=== PATIENT | female | born 1995 | race Caucasian/White ===

== ENCOUNTER 2016-11-19 16:55 | Emergency (ER) | payer OTHER ==
[~2016-11-19 16:55] MED LIST: HYDR-210 PO
[2016-11-19 17:48] LABS: BASO % 1 % (0-3); EOS # 0.2 x10^3/uL (0.0-0.7); EOS % 3 % (0-3); HEMATOCRIT 38.5 % (36.0-47.0); HEMOGLOBIN 13.2 g/dL (12.0-15.5); LYMPH # 2.2 x10^3/uL (1.0-4.8); LYMPH % 34 % (24-48); MEAN CORPUSCULAR HEMOGLOBIN 33 pg (25-35); MEAN CORPUSCULAR HGB CONC 34 g/dL (31-37); MEAN CORPUSCULAR VOLUME 96 fL (79-100); MONO # 0.4 x10^3/uL (0.0-1.1); MONO % 6 % (0-9); NEUT # 3.6 x10^3uL (1.8-7.7); NEUT % 56 % (31-73); PLATELET COUNT 249 x10^3/uL (140-400); RED BLOOD COUNT 4.02 x10^6/uL (3.50-5.40); RED CELL DISTRIBUTION WIDTH 11.9 % (11.5-14.5); WHITE BLOOD COUNT 6.4 x10^3/uL (4.0-11.0)
[2016-11-19 18:00] LABS: PREG TEST PT QUAL NEGATIVE (NEG)
[2016-11-19 18:01] LABS: ALBUMIN 3.7 g/dL (3.4-5.0); ALBUMIN/GLOBULIN RATIO 1.2 (1.0-1.7); CALCIUM 8.8 mg/dL (8.5-10.1); CREATININE 0.9 mg/dL (0.6-1.0); GFR 77.6; TOTAL BILIRUBIN 0.4 mg/dL (0.2-1.0); TOTAL PROTEIN 6.9 g/dL (6.4-8.2)
--- NOTE | 2016-11-19 18:23 | ED.ADGEN ---
Past History Past Medical History: No Pertinent History, Other (SHELLIE JOHNSON DO) Past Surgical History: No Surgical History (SHELLIE JOHNSON DO) Smoking: Non-smoker Alcohol Use: Occasionally Drug Use: Methadone (SHELLIE JOHNSON DO) Adult General Chief Complaint Chief Complaint Persecutory delusions or dreams (SHELLIE JOHNSON DO) HPI HPI Patient is a 21-year-old female chronic psychosis who presents with threatening and persecutory delusions. Patient describes delusions or dreams and states that they cause her to want to hurt or cut herself. Patient reports cutting her left thigh yesterday. On exam, patient does have feeling superficial abrasions consistent with age. Patient states she has daily hallucinations. She was evaluated at the [facility] prior to ED arrival and referred to the ER for medical screening evaluation and telemedicine psychiatric intake evaluation for possible inpatient placement. Patient denies SI or HI. She states she takes Depakote is compliant with her treatment. She denies any acute medical complaints. Last menstrual period was 2 days ago. (SHELLIE JOHNSON DO) Review of Systems Review of Systems ROS as per HPI. (SHELLIE JOHNSON DO) Allergies Allergies Allergies Coded Allergies Type Severity Reaction Last Updated Verified No Known Drug Allergies 03/14/13 No (COERY SAMPSON MD) Physical Exam Physical Exam Constitutional: Well developed, well nourished, no acute distress, non-toxic appearance. [] HENT: Normocephalic, atraumatic, bilateral external ears normal, oropharynx moist, no oral exudates, nose normal. [] Eyes: PERRLA, EOMI, conjunctiva normal, no discharge. [] Neck: Normal range of motion, no tenderness, supple, no stridor. [] Cardiovascular:Heart rate regular rhythm, no murmur [] Lungs & Thorax: Bilateral breath sounds clear to auscultation [] Abdomen: Bowel sounds normal, soft, no tenderness, no masses, no pulsatile masses. [] Skin: Warm, dry, no erythema, no rash. [] Back: No tenderness, no CVA tenderness. [] Extremities: No tenderness, no cyanosis, no clubbing, ROM intact, no edema. [] Neurologic: Alert and oriented X 2, normal motor function, normal sensory function, no focal deficits noted. [] Psychologic: Affect, flat. (SHELLIE JOHNSON DO) Current Patient Data Vital Signs Vital Signs Date Time Temp Pulse Resp B/P (MAP) Pulse Ox O2 Delivery O2 Flow Rate FiO2 11/19/16 17:35 98.6 81 16 98 Room Air (COREY SAMPSON MD) Lab Results Laboratory Tests Test 11/19/16 17:20 11/19/16 17:25 White Blood Count 6.4 x10^3/uL (4.0-11.0) Red Blood Count 4.02 x10^6/uL (3.50-5.40) Hemoglobin 13.2 g/dL (12.0-15.5) Hematocrit 38.5 % (36.0-47.0) Mean Corpuscular Volume 96 fL (79-100) Mean Corpuscular Hemoglobin 33 pg (25-35) Mean Corpuscular Hemoglobin Concent 34 g/dL (31-37) Red Cell Distribution Width 11.9 % (11.5-14.5) Platelet Count 249 x10^3/uL (140-400) Neutrophils (%) (Auto) 56 % (31-73) Lymphocytes (%) (Auto) 34 % (24-48) Monocytes (%) (Auto) 6 % (0-9) Eosinophils (%) (Auto) 3 % (0-3) Basophils (%) (Auto) 1 % (0-3) Neutrophils # (Auto) 3.6 x10^3uL (1.8-7.7) Lymphocytes # (Auto) 2.2 x10^3/uL (1.0-4.8) Monocytes # (Auto) 0.4 x10^3/uL (0.0-1.1) Eosinophils # (Auto) 0.2 x10^3/uL (0.0-0.7) Basophils # (Auto) 0.0 x10^3/uL (0.0-0.2) Sodium Level 137 mmol/L (136-145) Potassium Level 4.0 mmol/L (3.5-5.1) Chloride Level 103 mmol/L (98-107) Carbon Dioxide Level 28 mmol/L (21-32) Anion Gap 6 (6-14) Blood Urea Nitrogen 11 mg/dL (7-20) Creatinine 0.9 mg/dL (0.6-1.0) Estimated GFR (Cockcroft-Gault) 77.6 BUN/Creatinine Ratio 12 (6-20) Glucose Level 83 mg/dL (70-99) Calcium Level 8.8 mg/dL (8.5-10.1) Total Bilirubin 0.4 mg/dL (0.2-1.0) Aspartate Amino Transferase (AST) 13 U/L (15-37) L Alanine Aminotransferase (ALT) 17 U/L (14-59) Alkaline Phosphatase 47 U/L (46-116) Total Protein 6.9 g/dL (6.4-8.2) Albumin 3.7 g/dL (3.4-5.0) Albumin/Globulin Ratio 1.2 (1.0-1.7) Serum Test, Qualitative Negative (NEG) Urine Opiates Screen Neg (NEG) Urine Methadone Screen Neg (NEG) Urine Barbiturates Neg (NEG) Urine Phencyclidine Screen Neg (NEG) Urine Amphetamine/Methamphetamine Neg (NEG) Urine Benzodiazepines Screen Neg (NEG) Urine Cocaine Screen Neg (NEG) Urine Cannabinoids Screen Neg (NEG) Ethyl Alcohol Level < 10 mg/dL (0-10) Urine Ethyl Alcohol Neg (NEG) Valproic Acid Level 56 mcg/mL (50-100) Valproic Acid Last Dose Date 11/19/16 Valproic Acid Last Dose Time 0800 (COREY SAMPSON MD) EKG EKG [] (SHELLIE JOHNSON DO) Radiology/Procedures Radiology/Procedures [] (SHELLIE JOHNSON DO) Course & Med Decision Making Course & Med Decision Making Pertinent Labs and Imaging studies reviewed. (See chart for details) [Work up in progress. Care endorsed to upcoming ERP at 18:00 pending telepsych evaluation. ] (SHELLIE JOHNSON DO) Course & Med Decision Making Assumed care at shift change at 1800 p.m. Patient resting comfortably. Waiting for lab. Laboratory data completed at 1840 5 PM. Valproic acid level normal. Waiting For psych evaluation. At 1930 PM: Psych evaluation complete. Recommend inpatient stay. Patient is agreeable to go voluntarily to [place]; awaiting bed confirmation. 2144PM: Dr Bowers at [facility] accepts patient. PATIENT AGREES TO VOLUNTARY TRANSPORT. Transport arranged by EMS. Mother at bedside. (COREY SAMPSON MD) Final Impression Final Impression [1. ] Problems: (SHELLIE JOHNSON DO) Dragon Disclaimer Dragon Disclaimer This electronic medical record was generated, in whole or in part, using a voice recognition dictation system. (SHELLIE JOHNSON DO) SHELLIE JOHNSON DO Nov 19, 2016 18:23 COREY SAMPSON MD Nov 19, 2016 18:49
[2016-11-19 18:29] LABS: AMPHETAMINE/METHAMPHETAMINE NEG (NEG); BARBITURATES NEG (NEG); BENZODIAZEPINES NEG (NEG); CANNABINOIDS NEG (NEG); COCAINE NEG (NEG); METHADONE NEG (NEG); OPIATES NEG (NEG); PHENCYCLIDINE NEG (NEG)
[2016-11-19 18:33] LABS: VAL ACID 56 mcg/mL (50-100)
[2016-11-19 21:51] VITALS: BP 118/82
== END 2016-11-19 22:15 ==
LOC: ER 16:55
DX: F22 Delusional disorders (principal); F29 Unspecified psychosis not due to a substance or known physiological condition
CPT/HCPCS: 36415; 80053; 80164; 80307; 84703; 85025; 99285; G0480; G0479

== ENCOUNTER → 2017-01-29 | Outpatient (CLI) | payer OTHER ==
[2017-01-29 10:11] LABS: BASO % 0 % (0-3); EOS % 12 % (0-3); HEMATOCRIT 38.1 % (36.0-47.0); HEMOGLOBIN 13.1 g/dL (12.0-15.5); LYMPH # 2.5 x10^3/uL (1.0-4.8); LYMPH % 29 % (24-48); MEAN CORPUSCULAR HEMOGLOBIN 33 pg (25-35); MEAN CORPUSCULAR HGB CONC 34 g/dL (31-37); MEAN CORPUSCULAR VOLUME 94 fL (79-100); MONO # 0.5 x10^3/uL (0.0-1.1); MONO % 6 % (0-9); NEUT # 4.5 x10^3uL (1.8-7.7); NEUT % 53 % (31-73); PLATELET COUNT 333 x10^3/uL (140-400); RED BLOOD COUNT 4.04 x10^6/uL (3.50-5.40); RED CELL DISTRIBUTION WIDTH 11.3 % (11.5-14.5); WHITE BLOOD COUNT 8.6 x10^3/uL (4.0-11.0)
[2017-01-29 10:25] LABS: ALBUMIN 3.6 g/dL (3.4-5.0); ALBUMIN/GLOBULIN RATIO 1.1 (1.0-1.7); CALCIUM 9.1 mg/dL (8.5-10.1); GFR 68.7; TOTAL BILIRUBIN 0.2 mg/dL (0.2-1.0)
[2017-01-29 14:17] LABS: FREE T4 0.7 ng/dL (0.76-1.46); THYROID STIM HORMONE (TSH) 6.397 uIU/mL (0.358-3.740)
[2017-01-29 14:19] LABS: LI 0.8 mmol/L (0.6-1.2)
== END | disposition home or self-care (01) ==
LOC: LAB 09:06
PROVIDERS: ATTEND Physician Assistant
DX: Z51.81 Encounter for therapeutic drug level monitoring (principal); Z79.899 Other long term (current) drug therapy
CPT/HCPCS: 36415; 80053; 80061; 80178; 84439; 84443; 84480; 85025

== ENCOUNTER 2020-04-10 05:55 | Emergency (ER) | payer SELFPAY ==
[~2020-04-10] VITALS: Ht 160 cm; Wt 80.0 kg
[2020-04-10 06:09] VITALS: BP 122/88
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
[2020-04-10 06:54] LABS: BASO # 0.1 x10^3/uL (0.0-0.2); BASO % 1 % (0-3); EOS # 0.4 x10^3/uL (0.0-0.7); EOS % 4 % (0-3); HEMATOCRIT 45.4 % (36.0-47.0); HEMOGLOBIN 15.4 g/dL (12.0-15.5); LYMPH # 2.1 x10^3/uL (1.0-4.8); LYMPH % 18 % (24-48); MEAN CORPUSCULAR HEMOGLOBIN 32 pg (25-35); MEAN CORPUSCULAR HGB CONC 34 g/dL (31-37); MEAN CORPUSCULAR VOLUME 94 fL (79-100); MONO # 0.7 x10^3/uL (0.0-1.1); MONO % 7 % (0-9); NEUT # 7.9 x10^3uL (1.8-7.7); NEUT % 71 % (31-73); PLATELET COUNT 247 x10^3/uL (140-400); RED BLOOD COUNT 4.83 x10^6/uL (3.50-5.40); RED CELL DISTRIBUTION WIDTH 12.2 % (11.5-14.5); WHITE BLOOD COUNT 11.2 x10^3/uL (4.0-11.0)
[2020-04-10] MEDS ORDERED: NICOTINE 21MG PATCH. TD ONE (07:00)
[2020-04-10 07:07] LABS: CALCIUM 9.2 mg/dL (8.5-10.1); CREATININE 0.9 mg/dL (0.6-1.0); GFR 75.7; POTASSIUM 3.8 mmol/L (3.5-5.1)
[2020-04-10 07:09] LABS: AMPHETAMINE/METHAMPHETAMINE NEG (NEG); BARBITURATES NEG (NEG); BENZODIAZEPINES NEG (NEG); CANNABINOIDS NEG (NEG); COCAINE NEG (NEG); METHADONE NEG (NEG); OPIATES NEG (NEG); PHENCYCLIDINE NEG (NEG)
[2020-04-10 07:13] LABS: ALBUMIN 4.2 g/dL (3.4-5.0); ALBUMIN/GLOBULIN RATIO 1.2 (1.0-1.7); MAGNESIUM 1.8 mg/dL (1.8-2.4); TOTAL BILIRUBIN 0.4 mg/dL (0.2-1.0); TOTAL PROTEIN 7.8 g/dL (6.4-8.2)
[2020-04-10 07:16] LABS: BILIRUBIN,URINE NEG (NEG); CLARITY,URINE HAZY; COLOR,URINE YELLOW; GLUCOSE,URINE NEG (NEG); NITRITE,URINE NEG (NEG); UROBILINOGEN,URINE 0.2 mg/dL (0.2 mg/dL)
[2020-04-10 07:17] LABS: BACTERIA,URINE FEW /HPF (0-FEW); RBC,URINE OCC /HPF (0-2); SQUAMOUS EPITHELIAL CELL,UR MOD /LPF; WBC,URINE OCC /HPF (0-4)
--- NOTE | 2020-04-10 10:01 | EKG ---
[address] [address] Test Date: 2020-04-10 Test Time: 07:16:32 Pat Name: RAMON CH Department: Room: Gender: F Carrier Associate: UMM : 1995 Requested By: LELE NELSON Order Number: [id number] Reading MD: Measurements Intervals [place] Rate: 75 P: 40 NV: 176 QRS: 42 QRSD: 96 T: 16 QT: 352 QTc: 396 Interpretive Statements SINUS RHYTHM NORMAL ECG RI6.02 No previous ECG available for comparison
== END 2020-04-10 09:40 | disposition home or self-care (01) ==
LOC: ER 05:55
DX: F20.0 Paranoid schizophrenia (principal); J45.909 Unspecified asthma, uncomplicated
CPT/HCPCS: 36415; 80053; 80307; 81001; 81025; 83735; 85025; 93005; 99284; G0480

== ENCOUNTER 2020-05-01 13:23 | Inpatient (IN) | payer OTHER ==
[~2020-05-01] VITALS: Ht 160 cm; Wt 83.5 kg
[2020-05-01] MEDS ORDERED: MIDAZOLAM HCL PF 5 MG/5 ML VIAL. IV ONE (13:30)
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
[2020-05-01] MEDS ORDERED: IV NORMAL SALINE 1,000ML 1,000 ML IV ONE ×2 (14:00→15:15)
[2020-05-01 14:17] LABS: BASO % 0 % (0-3); EOS # 0.1 x10^3/uL (0.0-0.7); EOS % 1 % (0-3); HEMATOCRIT 42.5 % (36.0-47.0); HEMOGLOBIN 14.5 g/dL (12.0-15.5); LYMPH # 1.9 x10^3/uL (1.0-4.8); LYMPH % 12 % (24-48); MEAN CORPUSCULAR HEMOGLOBIN 32 pg (25-35); MEAN CORPUSCULAR HGB CONC 34 g/dL (31-37); MEAN CORPUSCULAR VOLUME 95 fL (79-100); MONO # 1.3 x10^3/uL (0.0-1.1); MONO % 8 % (0-9); NEUT % 80 % (31-73); PLATELET COUNT 227 x10^3/uL (140-400); RED BLOOD COUNT 4.49 x10^6/uL (3.50-5.40); WHITE BLOOD COUNT 16.3 x10^3/uL (4.0-11.0)
[2020-05-01 14:24] LABS: AMPHETAMINE/METHAMPHETAMINE POS (NEG); BARBITURATES NEG (NEG); BENZODIAZEPINES NEG (NEG); CANNABINOIDS NEG (NEG); COCAINE NEG (NEG); METHADONE NEG (NEG); OPIATES NEG (NEG); PHENCYCLIDINE NEG (NEG)
[2020-05-01 14:27] LABS: CALCIUM 8.9 mg/dL (8.5-10.1); GFR 66.5; POTASSIUM 3.3 mmol/L (3.5-5.1)
[2020-05-01 14:39] LABS: BILIRUBIN,URINE NEG (NEG); CLARITY,URINE TURBID; COLOR,URINE AMBER; GLUCOSE,URINE NEG (NEG)
[2020-05-01 14:40] LABS: NITRITE,URINE NEG (NEG); UROBILINOGEN,URINE 0.2 mg/dL (0.2 mg/dL)
[2020-05-01 14:41] LABS: ALBUMIN 4.1 g/dL (3.4-5.0); ALBUMIN/GLOBULIN RATIO 1.2 (1.0-1.7); BACTERIA,URINE MANY /HPF (0-FEW); GRANULAR CASTS,URINE OCC /HPF; HYALINE CASTS, URINE OCC /HPF; MAGNESIUM 1.7 mg/dL (1.8-2.4); SQUAMOUS EPITHELIAL CELL,UR MOD /LPF; TOTAL BILIRUBIN 0.8 mg/dL (0.2-1.0); TOTAL PROTEIN 7.6 g/dL (6.4-8.2)
--- NOTE | 2020-05-01 17:40 | EKG ---
[address] [address] Test Date: 2020-05-01 Test Time: 14:20:38 Pat Name: RAMON CH Department: Room: Gender: F Java Web Architect: UMM : 1995 Requested By: LELE NELSON Order Number: [id number] Reading MD: Jabari Masters Measurements Intervals [place] Rate: 101 P: 44 GA: 190 QRS: 71 QRSD: 100 T: 12 QT: 346 QTc: 449 Interpretive Statements SINUS TACHYCARDIA Electronically Signed On 05-02-2020 10:03:15 IT ADMIN by Jabari Masters
[2020-05-01] MEDS ORDERED: HALOPERIDOL LACT 5 MG/ML VIAL. IVP ONE (17:45)
[2020-05-01] MEDS ORDERED: POTASSIUM CHLORIDE 20MEQ 100 ML IV ONE (18:45)
[2020-05-01] MEDS ORDERED: MAGNESIUM SULFATE 2GM 50 ML IV ONE (18:45)
[2020-05-01] MEDS ORDERED: IV RINGERS SOLUTION,LACTATED 1,000 ML IV ONE (18:45)
[2020-05-01 21:12] LABS: % EOS 1 % (0-5); % LYMPHS 8 % (24-48); % MONOS 4 % (0-10); % SEGS 87 % (35-66); PLT ESTIMATE ADEQUATE (ADEQUATE)
[2020-05-01 22:06] LABS: SALIC 4.3 mg/dL (2.8-20.0)
[2020-05-01 22:07] LABS: ACETAMIN < 2.0 mcg/mL (10-30)
--- NOTE | 2020-05-01 22:22 | RAD ---
Exam: CT head INDICATION: Altered mental status TECHNIQUE: Sequential axial images through the head were obtained without the administration of IV co ntrast. Comparisons: None FINDINGS: No focal parenchymal lesion or hemorrhage is identified. There is no midline shift or sulcal effaceme nt. No acute vascular territory infarction is identified. Contreras-white distinction is preserved. The ventricular system is within normal limits without compression hydrocephalus. The basal cisterns are well maintained. The visualized portions of the paranasal sinuses and mastoid air cells are well-pneumatized. No acute fractures. IMPRESSION: No acute intracranial abnormality. Exposure: One or more of the following in the visualized dose reduction techniques were utilized for this examination: 1. Automated exposure control 2. Adjustment of the MA and/or KV according to patient size Use of iterative of reconstructive technique Electronically signed by: Shu Barrios MD (05/01/2020 10:19 PM) [facility]
[2020-05-02] MEDS ORDERED: IV RINGERS SOLUTION,LACTATED 1,000 ML IV ONE (06:00)
[2020-05-02] MEDS ORDERED: DEXTROSE 50% 25 GM / 50ML DISP.SYRIN. IV ONE (06:00)
[2020-05-02] MEDS ORDERED: IV DEXTROSE 5 %-0.2 % NACL 1,000 ML IV ONE (11:15)
[2020-05-02] MEDS ORDERED: ACETAMINOPHEN 325 MG TABLET PO PRN (13:30)
[2020-05-02] MEDS ORDERED: ONDANSETRON PF 4 MG/2 ML VIAL. IVP PRN (13:30)
[2020-05-02 19:39] VITALS: BP 125/66
[2020-05-02] MEDS ORDERED: ESCITALOPRAM OX10 MG PO (20:20)
[2020-05-02] MEDS ORDERED: HYDR25TA PO (20:20)
[2020-05-02] MEDS ORDERED: SERT100T PO (20:20)
[2020-05-02] MEDS ORDERED: LITH300T3 PO (20:20)
[2020-05-02 20:38] VITALS: BP 130/81
[2020-05-02 21:45] VITALS: BP 126/86
[2020-05-02 22:45] VITALS: BP 128/61
[2020-05-03] VITALS (13 sets, daily range): BP systolic 103–137; BP diastolic 53–83
[2020-05-03] MEDS ORDERED: NICOTINE 21MG PATCH. TD ONE ×2 (06:00→17:30)
[2020-05-03] MEDS: ALBUTEROL SULFATE 2.5 MG/3 ML NEBU. NEB PRN ×2 (06:15→17:27)
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
[2020-05-03] MEDS: BENZOCAINE/MENTHOL LOZNGE 18'S BOX. PO PRN ×3 (17:54→22:51)
[2020-05-03] MEDS ORDERED: ALBUTEROL SULFATE 2.5 MG/3 ML NEBU. INH PRN (18:45)
[2020-05-03 18:54] LABS: BASO % 0 % (0-3); EOS # 0.4 x10^3/uL (0.0-0.7); EOS % 6 % (0-3); HEMATOCRIT 40.1 % (36.0-47.0); HEMOGLOBIN 13.7 g/dL (12.0-15.5); LYMPH # 1.8 x10^3/uL (1.0-4.8); LYMPH % 27 % (24-48); MEAN CORPUSCULAR HEMOGLOBIN 33 pg (25-35); MEAN CORPUSCULAR HGB CONC 34 g/dL (31-37); MEAN CORPUSCULAR VOLUME 96 fL (79-100); MONO # 0.4 x10^3/uL (0.0-1.1); MONO % 6 % (0-9); NEUT # 4.1 x10^3uL (1.8-7.7); NEUT % 62 % (31-73); PLATELET COUNT 205 x10^3/uL (140-400); RED CELL DISTRIBUTION WIDTH 12.2 % (11.5-14.5); WHITE BLOOD COUNT 6.7 x10^3/uL (4.0-11.0)
[2020-05-03 19:01] LABS: ALBUMIN 3.1 g/dL (3.4-5.0); ALBUMIN/GLOBULIN RATIO 0.9 (1.0-1.7); CALCIUM 8.5 mg/dL (8.5-10.1); CREATININE 0.9 mg/dL (0.6-1.0); GFR 75.1; TOTAL BILIRUBIN 0.4 mg/dL (0.2-1.0); TOTAL PROTEIN 6.5 g/dL (6.4-8.2)
[2020-05-03] MEDS: ALBUTEROL SULFATE 8GM INHALER. INH PRN (22:51)
[2020-05-04] MEDS: BENZOCAINE/MENTHOL LOZNGE 18'S BOX. PO PRN ×2 (02:18→09:52)
[2020-05-04] MEDS: ALBUTEROL SULFATE 8GM INHALER. INH PRN ×2 (02:18→09:52)
[2020-05-04 03:00] VITALS: BP 97/58
[2020-05-04 11:00] VITALS: BP 91/61
[2020-05-04] MEDS ORDERED: HYDR25TA PO (11:03)
[2020-05-04] MEDS: LITHIUM CARBONATE 300 MG TABLET PO SCH ×2 (12:04→20:35)
[2020-05-04] MEDS: CITALOPRAM 20 MG TABLET. PO SCH (12:04)
[2020-05-04] MEDS: hydrOXYzine HCL 25 MG TABLET PO SCH ×3 (12:04→20:35)
[2020-05-04] MEDS: NICOTINE 21MG PATCH. TD SCH (12:08)
[2020-05-04] MEDS ORDERED: POTASSIUM CHLORIDE 20 MEQ TABLET.ER. PO ONE (13:45)
[2020-05-04] MEDS ORDERED: MAGNESIUM OXIDE 400 MG TABLET PO SCH (14:00)
[2020-05-04] MEDS ORDERED: STARTER PACK-hydrOXYzine 1 STARTPACK TABLET PO SCH (14:00)
[2020-05-04 15:00] VITALS: BP 107/67
[2020-05-04 15:24] LABS: HEMATOCRIT 42.4 % (36.0-47.0); HEMOGLOBIN 14.5 g/dL (12.0-15.5); RED BLOOD COUNT 4.46 x10^6/uL (3.50-5.40); RED CELL DISTRIBUTION WIDTH 12.1 % (11.5-14.5); WHITE BLOOD COUNT 7.5 x10^3/uL (4.0-11.0)
[2020-05-04 15:39] LABS: CALCIUM 8.8 mg/dL (8.5-10.1); CREATININE 0.8 mg/dL (0.6-1.0); POTASSIUM 3.3 mmol/L (3.5-5.1)
[2020-05-04 15:45] LABS: ALBUMIN 3.3 g/dL (3.4-5.0); ALBUMIN/GLOBULIN RATIO 0.9 (1.0-1.7); TOTAL BILIRUBIN 0.3 mg/dL (0.2-1.0); TOTAL PROTEIN 6.8 g/dL (6.4-8.2)
[2020-05-04 19:05] VITALS: BP 121/81
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
[2020-05-05 08:00] VITALS: BP 95/76
[2020-05-05] MEDS: CITALOPRAM 20 MG TABLET. PO SCH (09:28)
[2020-05-05] MEDS: hydrOXYzine HCL 25 MG TABLET PO SCH ×3 (09:28→20:36)
[2020-05-05] MEDS: LITHIUM CARBONATE 300 MG TABLET PO SCH ×2 (09:28→20:36)
[2020-05-05] MEDS: NICOTINE 21MG PATCH. TD SCH (09:28)
[2020-05-05] MEDS: ALBUTEROL SULFATE 8GM INHALER. INH PRN (09:29)
[2020-05-05] MEDS: LORazepam 1 MG TABLET PO PRN ×3 (10:21→20:36)
[2020-05-05] MEDS ORDERED: POTASSIUM CHLORIDE 20 MEQ TABLET.ER. PO ONE (14:00)
[2020-05-05 19:29] VITALS: BP 118/76
[2020-05-05] MEDS: MELATONIN 3 MG TABLET PO PRN (20:36)
--- NOTE | 2020-05-05 23:23 | PN ---
DATE: 05/02/2020 SUBJECTIVE: The patient is sitting on the edge of the bed, eating lunch comfortably, in no apparent distress. Denied any complaint. The nursing staff did not voice any concern. She apparently has ____ her desire to leave, but she knows that she is now involuntary that she attempted to leave the security and police can be called in. So far, we have not had any success to get her placed in an inpatient psychiatric facility. OBJECTIVE: GENERAL: On examining her today, she looked well and was clearly in no apparent respiratory distress. No pallor, jaundice, cyanosis or thyromegaly. No jugular venous distension. No limb edema. VITAL SIGNS: Her heart rate was 71, blood pressure was 95/76, temperature 97.6, respiratory rate was 18 and oxygen saturation was 97% on room air. HEAD, EYES, EARS, NOSE AND THROAT: Showed normocephalic, atraumatic. NECK: Supple. HEART: Showed normal first and second heart sounds. No gallop, rub or murmur. CHEST: Clear to auscultation. No crepitation or rhonchi. ABDOMEN: Distended, soft, nontender. NEUROLOGIC: She is grossly intact. LABORATORY DATA: As of yesterday, her white cell count was 7500, hemoglobin 14.5, hematocrit 42, MCV 95, and platelet count 224,000. Her chemistry as of yesterday showed a serum sodium 141, potassium 3.3, chloride 107, bicarbonate 25, anion gap of 9, BUN 7, creatinine 0.8, estimated GFR was 86 mL per minute. Her glucose 107, calcium was 8.8, magnesium was 2.1. Total bilirubin, AST, ALT, alkaline phosphatase were normal. Total protein 6.8, albumin was 3.3. ASSESSMENT: 1. This is a 25-year-old female patient coming off methamphetamine binge with very aggressive behavior against her parents. 2. Homicidal ideation. 3. Suicidal ideation. 4. Schizoaffective disorder. 5. Noncompliance with medication. 6. Hypokalemia. PLAN: The psychiatric assessment team has seen her and evaluated and she is now involuntary and will be placed soon as one of these psychiatric facilities will accept her that includes [facility] in [place], [place]; [facility] in [place] and/or [place]. LUISA WINSLOW MD DR: Denia JOB#: [id number] / [id number]
[2020-05-06 06:13] LABS: HEMATOCRIT 43.2 % (36.0-47.0); HEMOGLOBIN 14.6 g/dL (12.0-15.5); RED BLOOD COUNT 4.51 x10^6/uL (3.50-5.40); RED CELL DISTRIBUTION WIDTH 12.2 % (11.5-14.5)
[2020-05-06 06:48] LABS: ALBUMIN 3.3 g/dL (3.4-5.0); ALBUMIN/GLOBULIN RATIO 0.9 (1.0-1.7); CALCIUM 9.3 mg/dL (8.5-10.1); CREATININE 0.8 mg/dL (0.6-1.0); TOTAL BILIRUBIN 0.3 mg/dL (0.2-1.0); TOTAL PROTEIN 6.8 g/dL (6.4-8.2)
[2020-05-06] MEDS: NICOTINE 21MG PATCH. TD SCH (08:40)
[2020-05-06] MEDS: hydrOXYzine HCL 25 MG TABLET PO SCH ×3 (08:40→20:37)
[2020-05-06] MEDS: LORazepam 1 MG TABLET PO PRN ×3 (08:40→18:48)
[2020-05-06] MEDS: CITALOPRAM 20 MG TABLET. PO SCH (08:40)
[2020-05-06] MEDS: LITHIUM CARBONATE 300 MG TABLET PO SCH ×2 (08:49→20:37)
[2020-05-06 12:00] VITALS: BP 114/59
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
[2020-05-06] MEDS: MELATONIN 3 MG TABLET PO PRN (18:48)
[2020-05-06 23:26] VITALS: BP 100/64
[2020-05-07] MEDS: hydrOXYzine HCL 25 MG TABLET PO SCH ×3 (07:37→19:21)
[2020-05-07] MEDS: NICOTINE 21MG PATCH. TD SCH (07:37)
[2020-05-07] MEDS: CITALOPRAM 20 MG TABLET. PO SCH (07:37)
[2020-05-07] MEDS: LITHIUM CARBONATE 300 MG TABLET PO SCH ×2 (07:37→19:21)
[2020-05-07 10:52] VITALS: BP 109/60
[2020-05-07] MEDS: LORazepam 1 MG TABLET PO PRN (18:05)
[2020-05-07] MEDS: MELATONIN 3 MG TABLET PO PRN (19:20)
[2020-05-07 19:26] VITALS: BP 111/54
--- NOTE | 2020-05-08 06:12 | PN ---
DATE: 05/02/2020 SUBJECTIVE: The patient is apparently doing well today. According to nursing staff, she had multiple walks and had a shower. She is very cooperative and compliant. Did not display any aggressive or combative behavior and she might be able to be transferred to ____ as early as this coming Saturday. Clinically, she seemed stable. PHYSICAL EXAMINATION: VITAL SIGNS: Her heart rate is 54, blood pressure 109/60, temperature 97.8, respiratory rate was 18 and oxygen saturation was 97% on room air. The rest of clinical exam is stable. Her intake and output are incompletely recorded. LABORATORY DATA: She has no lab work done this morning. ASSESSMENT: 1. A 25-year-old coming off methamphetamine binge with very aggressive behavior that has resolved. She is now very compliant and cooperative, did not display any aggressive or combative behavior. Since admission, she continued to have some suicidal ideation, but no homicidal ideation. 2. She is known to have schizoaffective disorder and apparently has been noncompliant with her medication before. PLAN: To continue with her medications. We will repeat her lab work again tomorrow and once she is accepted, she will be transferred to ____ for inpatient psychiatric stabilization. LUISA WINSLOW MD DR: VERA/krystle JOB#: [id number] / [id number]
[2020-05-08] MEDS: NICOTINE 21MG PATCH. TD SCH (07:57)
[2020-05-08] MEDS: CITALOPRAM 20 MG TABLET. PO SCH (07:57)
[2020-05-08] MEDS: hydrOXYzine HCL 25 MG TABLET PO SCH ×3 (07:57→20:50)
[2020-05-08] MEDS: LORazepam 1 MG TABLET PO PRN ×3 (07:57→20:50)
[2020-05-08 08:00] VITALS: BP 110/62
[2020-05-08] MEDS: LITHIUM CARBONATE 300 MG TABLET PO SCH ×2 (08:00→20:50)
[2020-05-08 08:17] VITALS: BP 110/62
--- NOTE | 2020-05-08 17:46 | PN ---
DATE: 05/08/2020 SUBJECTIVE: The patient is doing very well according to nursing staff. She is walking around with the CNAs and she has been stable, displayed no aggressive behavior, did not voice any suicidal or homicidal ideation. The nursing staff did not voice any concern. OBJECTIVE: GENERAL: When I examined her, she looked well and was clearly in no apparent respiratory distress. No pallor, jaundice, cyanosis or thyromegaly. No jugular venous distension. No lower limb edema. VITAL SIGNS: Her heart rate was 74, blood pressure was 110/62, temperature was 98.4, respiratory rate was 18 and oxygen saturation was 98% on room air. The rest of clinical exam is stable. Her intake and output are incompletely recorded. LABORATORY DATA: Her most recent lab work showed a white cell count of 7000, hemoglobin 15, hematocrit 43, MCV 96, and platelet count 209,000. Serum sodium was 140, potassium 4, chloride 106, bicarbonate 27, anion gap of 7, BUN 10, creatinine 0.8, estimated GFR was 86 mL per minute, her glucose 178, calcium was 9.3. Total bilirubin, AST, ALT, alkaline phosphatase were normal. Total protein was 6.8, albumin was 3.3. ASSESSMENT: 1. A 25-year-old female patient who is coming off methamphetamine binge. She was very aggressive towards her parents on admission; however, she is now very compliant and cooperative, did not display any aggressive or combative behavior. 2. She has not also displayed or has any suicidal or homicidal ideation today, although yesterday, she did have some suicidal ideation. 3. She is known to have schizoaffective disorder and apparently has been noncompliant with her medication before. PLAN: To continue with all her medication, and once she is accepted, she will be transferred to [facility] for inpatient psychiatric stabilization. LUISA WINSLOW MD DR: VERA/krystle JOB#: [id number] / [id number]
[2020-05-08 19:33] VITALS: BP 109/55
[2020-05-08] MEDS: MELATONIN 3 MG TABLET PO PRN (20:50)
[2020-05-09] MEDS: hydrOXYzine HCL 25 MG TABLET PO SCH ×3 (07:47→20:04)
[2020-05-09] MEDS: CITALOPRAM 20 MG TABLET. PO SCH (07:47)
[2020-05-09] MEDS: NICOTINE 21MG PATCH. TD SCH (07:47)
[2020-05-09] MEDS: LITHIUM CARBONATE 300 MG TABLET PO SCH ×2 (07:47→20:04)
[2020-05-09 07:53] VITALS: BP 110/64
[2020-05-09 08:03] LABS: HEMATOCRIT 43.9 % (36.0-47.0); HEMOGLOBIN 14.9 g/dL (12.0-15.5); RED BLOOD COUNT 4.59 x10^6/uL (3.50-5.40); RED CELL DISTRIBUTION WIDTH 11.9 % (11.5-14.5); WHITE BLOOD COUNT 8.3 x10^3/uL (4.0-11.0)
[2020-05-09 08:28] LABS: ALBUMIN 3.3 g/dL (3.4-5.0); CREATININE 0.9 mg/dL (0.6-1.0); GFR 75.1; POTASSIUM 4.3 mmol/L (3.5-5.1); TOTAL BILIRUBIN 0.1 mg/dL (0.2-1.0); TOTAL PROTEIN 6.6 g/dL (6.4-8.2)
[2020-05-09 16:43] VITALS: BP 119/74
[2020-05-09 20:00] VITALS: BP 132/74
[2020-05-09] MEDS: LORazepam 1 MG TABLET PO PRN (20:03)
[2020-05-09] MEDS: MELATONIN 3 MG TABLET PO PRN (20:04)
--- NOTE | 2020-05-10 04:14 | PN ---
DATE: 05/09/2020 SUBJECTIVE: The patient is sitting on the edge of the bed, comfortably in no apparent distress. Denied any complaint. She did not voice any suicidal or homicidal ideation. Apparently, she has been very compliant and cooperative, has been walking around with the staff, had the shower, and did not display any aggressive behavior. The nursing staff did not voice any concern. PHYSICAL EXAMINATION: GENERAL: When I examined her, she looked well and was clearly in no apparent respiratory distress. No pallor, jaundice, cyanosis, or thyromegaly. No jugular venous distention. No lower limb edema. VITAL SIGNS: Her heart rate was 58, blood pressure was 119/74, temperature was 98.9, respiratory rate was 18 and oxygen saturation was 98%. HEAD, EYES, EARS, NOSE, AND THROAT: Showed normocephalic, atraumatic. NECK: Supple. HEART: Normal first and second heart sounds. No gallop, rub, or murmur. CHEST: Clear to auscultation. No crepitation or rhonchi. ABDOMEN: Distended, soft, nontender. NEUROLOGIC: She is grossly intact. She moves all extremities without difficulty. She ambulates without assistance or assistive devices. Her intake and output are incompletely recorded. LABORATORY DATA: As of this morning, her white cell count was 8300, hemoglobin 14.9, hematocrit 44, MCV 96, and platelet count of 191,000. Her chemistry showed a serum sodium 141, potassium 4.3, chloride 106, bicarbonate 28, anion gap of 7, BUN 11, creatinine 0.9, estimated GFR was 75 mL per minute. Her glucose was 79, calcium was 9. Total bilirubin, AST, ALT, and alkaline phosphatase were normal. Total protein was 6.6, albumin was 3.3. ASSESSMENT: 1. This is a 25-year-old female patient who came off methamphetamine binge. She was very aggressive towards her parents and on admission; however, she is now very compliant and cooperative, did not display any aggressive or combative behavior. 2. She has not voiced any suicidal or homicidal ideation. 3. She is known to have schizoaffective disorder and apparently has been noncompliant with her medication before. She is now on all her home medications and seems to be doing well. PLAN: To continue with all her medications. Once she is accepted, she will be transferred to ____ for inpatient psychiatric stabilization. LUISA WINSLOW MD DR: VERA/krystle JOB#: [id number] / [id number]
[2020-05-10 05:25] VITALS: BP 97/55
[2020-05-10 11:45] VITALS: BP 111/66
--- NOTE | 2020-05-10 14:04 | DS ---
DATE OF DISCHARGE: HOSPITAL COURSE: The patient is a 25-year-old female patient who was admitted to the Emergency Department after coming off methamphetamine binge, with very aggressive behavior particularly towards her parents. She also voiced suicidal and homicidal ideation and therefore she was admitted to ICU and required one-on-one sitter. We did resume her medication. She was under involuntary hold and the patient has been very pleasant. On questioning her, she denied any complaint. She did not voice any suicidal or homicidal ideation. She has been very compliant and cooperative, has been walking around with the staff and had a shower, did not display any aggressive behavior and she was accepted at [facility]. She was discharged there for inpatient psychiatric stabilization. PHYSICAL EXAMINATION: GENERAL: When I examined her today, she looked well and was clearly in no apparent respiratory distress. No pallor, jaundice, cyanosis or thyromegaly. No jugular venous distention. No limb edema. VITAL SIGNS: Her heart rate was 58, blood pressure was 119/74, temperature was 98.9, respiratory rate was 18 and oxygen saturation was 98%. HEAD, EYES, EARS, NOSE AND THROAT: Showed normocephalic, atraumatic. NECK: Supple. HEART: Showed normal first and second heart sounds. No gallop, rub or murmur. CHEST: Clear to auscultation. No crepitation or rhonchi. ABDOMEN: Distended, soft, nontender. NEUROLOGIC: She is grossly intact. She moves all extremities without difficulty. She ambulates without assistance or assistive devices. Her intake and output were incompletely recorded. LABORATORY DATA: Her lab work showed her white cell count was 8300, hemoglobin 14.9, hematocrit 44, MCV 96, and platelet count of 191,000. Her chemistry showed serum sodium 141, potassium 4.3, chloride 106, bicarbonate 28, anion gap of 7, BUN 11, creatinine was 0.9, estimated GFR was 75 mL per minute. Her glucose was 79, calcium was 9. Total bilirubin, AST, ALT, alkaline phosphatase were normal. Total protein 6.6, albumin was 3.3. Her prothrombin time and INR are normal. Urinalysis was unremarkable and toxic screen obviously was positive for amphetamine on admission. Her coronavirus by PCR was not detectable. DISCHARGE MEDICATIONS: The patient was discharged to ____ to continue on melatonin 6 mg at bedtime, lorazepam 1 mg every 4 hours, lithium carbonate 300 mg p.o. b.i.d., citalopram hydrobromide 20 mg daily, hydroxyzine 25 mg 3 times a day, albuterol sulfate 1 puff every 6 hours, and nicotine patch 21 mg transdermal patch once a day. FINAL DISCHARGE DIAGNOSES: 1. Amphetamine binge with resultant aggressive behavior towards her parents and that has resolved. The patient is now very pleasant, compliant and cooperative and did not display any aggressive or combative behavior. 2. She has voiced no suicidal or homicidal ideation. The patient is known to have schizoaffective disorder and apparently has been noncompliant with her medication before. She has been on all her medications for almost a week now. LUISA WINSLOW MD DR: VERA/krystle JOB#: [id number] / [id number]
[2020-05-10] MEDS: hydrOXYzine HCL 25 MG TABLET PO SCH (17:20)
== END 2020-05-10 20:23 | DRG 885 ==
LOC: ER 13:23 → ICU 05-02 13:25 → ER 05-02 18:10
PROVIDERS: ADMIT Hospitalist; ATTEND Hospitalist
DX: F25.9 Schizoaffective disorder, unspecified (principal); R45.851 Suicidal ideations; Z20.822 Contact with and (suspected) exposure to COVID-19; R45.850 Homicidal ideations; F17.200 Nicotine dependence, unspecified, uncomplicated; E87.6 Hypokalemia; J45.909 Unspecified asthma, uncomplicated; F15.10 Other stimulant abuse, uncomplicated; Z91.14 Patient's other noncompliance with medication regimen; Z91.19 Patient's noncompliance with other medical treatment and regimen
CPT/HCPCS: 36415; 70450; 80053; 80178; 80307; 80329; 81001; 81025; 82550; 82947; 83605; 83735; 83874; 84443; 85007; 85025; 85027; 85610; 87086; 93005; 94640; 96361; 96365; 96366; 96375; 96376; 99406; G0480; J1630; J2060; J2250; J3475; J3480; J7120; U0003; 99285-25; J7030; J7613